=== PATIENT | male | born 1990 | race Caucasian/White ===

== ENCOUNTER 2023-12-08 11:57 | Emergency (ER) | payer SELFPAY ==
[~2023-12-08] VITALS: Ht 170.2 cm; Wt 70.0 kg
[2023-12-08 11:59] VITALS: BP 137/95; PULSE 110; RESP 17; TEMP 98.9; O2SAT 99
== END 2023-12-08 18:44 | disposition left against medical advice (07) ==
LOC: ER 12:44
DX: F10.129 Alcohol abuse with intoxication, unspecified (principal); Y90.9 Presence of alcohol in blood, level not specified
CPT/HCPCS: 99283; Z7610